=== PATIENT | female | born 1985 | race Asian ===

== ENCOUNTER 2021-04-27 22:59 | Emergency (ER) | payer MEDICAID ==
[~2021-04-27] VITALS: Ht 152.4 cm; Wt 65.9 kg
[2021-04-27 23:09] VITALS: BP 127/54
[2021-04-27] MEDS ORDERED: HYDR200T83 PO (23:11)
[2021-04-27 23:30] LABS: COVID AG,FIA SOURCE NASOPHARYNGEAL
== END 2021-04-28 00:11 | disposition home or self-care (01) ==
LOC: EMS 23:07
DX: R05.9 Cough, unspecified (principal); Z20.822 Contact with and (suspected) exposure to COVID-19
CPT/HCPCS: 87426; 99283; U0003